=== PATIENT | male | born 1985 | race Caucasian/White ===

== ENCOUNTER 2019-04-05 08:22 | Emergency (ER) | payer BC, OTHER, SELFPAY ==
[~2019-04-05] VITALS: Ht 180.3 cm; Wt 80.9 kg
[2019-04-05] MEDS ORDERED: ACET-683 PO (08:28)
[2019-04-05] MEDS ORDERED: LIDOCAINE 2% MDV 20 ML VIAL SC ONE (09:30)
[2019-04-05] MEDS ORDERED: CYCLOBENZAPRINE 10 MG TAB PO ONE (09:30)
[2019-04-05 10:15] LABS: BLOOD UREA NITROGEN 15 MG/DL (7-18); CALCIUM LEVEL 9.2 MG/DL (8.5-10.1); CARBON DIOXIDE LEVEL 30 MEQ/L (21-32); CHLORIDE LEVEL 109 MEQ/L (98-107); CK-MB VALUE MASS < 1.0 NG/ML (<3.6); CPK CREATINE PHOSPHOKINASE 111 U/L (39-308); CREATININE FOR GFR 0.97 MG/DL (0.70-1.30); GLOMERULAR FILTRATION RATE > 60.0 (>60); GLUCOSE, FASTING 83 MG/DL (70-100); MAGNESIUM LEVEL 2.4 MG/DL (1.8-2.4); POTASSIUM SERUM 4.3 MEQ/L (3.5-5.1); SODIUM LEVEL 143 MEQ/L (136-145)
[2019-04-05] MEDS ORDERED: CYCL10TA PO (10:23)
[2019-04-05 10:40] VITALS: BP 131/71
== END 2019-04-05 10:51 | disposition home or self-care (01) ==
LOC: M ED 08:22
DX: M62.838 Other muscle spasm (principal); M54.9 Dorsalgia, unspecified

== ENCOUNTER → 2020-05-31 | Outpatient (REF) | payer BC ==
[~2020-05-31] MED LIST: ACET-683 PO; CYCL-707 PO
== END ==
LOC: M SMT 13:09
PROVIDERS: ATTEND Urology
DX: Z30.2 Encounter for sterilization (principal)

== ENCOUNTER → 2020-08-05 | Outpatient (REF) | payer BC ==
[2020-08-05 10:30] LABS: SEMEN APPEARANCE OPAQUE (OPAQUE); SEMEN VISCOSITY LIQUID (LIQUID); SEMEN VOLUME 1.2 ml (2.0-5.0); WBC CONCENTRATION >1 M/ml (<=1 M/ml)
== END ==
LOC: M SMT 09:58
PROVIDERS: ATTEND Urology
DX: Z98.52 Vasectomy status (principal)